=== PATIENT | male | born 1970 | race Caucasian/White ===

== ENCOUNTER → 2019-12-08 | Outpatient (CLI) | payer OTHER ==
[~2019-12-08] MED LIST: AMITRIPTYLINE H10 M1 PO; BENADRYL25 M2 PO; BUSPIRONE; CELEBREX 1100 MG/CAP; CELEBREX 200MG200 MG PO; CEPHALEXIN500 M1 PO; COLACE 100100 MG/CAP PO; DILAUDID 4MG TAB4 MG PO; FLOMAX 0.40.4 MG/CAP PO; LIORESAL 1010 MG/TAB PO; LORTAB 7.5/5001 TAB PO; LYRICA 50MG CAP50 MG PO; MELATONIN5 M1 SL; NUCENTA; NUCYNTA50 MG PO; PERCOCET 325 MG1 TA2 PO; PHENERGAN 25 TA25 MG PO; RAPAFLO4 MG PO; SEPTRA DS 8001 TAB PO; TRAZODONE150 MG PO; XANAX 0.5MG0.5 MG; ZANTAC 150MG T150 MG PO; ZANTAC 300300 MG PO; ZOLOFT50 MG PO
== END ==
LOC: ZCOL.LAB 13:36
DX: T81.31XS Disruption of external operation (surgical) wound, not elsewhere classified, sequela (principal); L03.311 Cellulitis of abdominal wall

== ENCOUNTER 2020-06-26 16:12 | Emergency (ER) | payer OTHER ==
[~2020-06-26] VITALS: Ht 175.3 cm; Wt 131.8 kg
[2020-06-26 16:14] VITALS: BP 122/70; TEMP 97.7
[2020-06-26 17:32] VITALS: PULSE 67
== END 2020-06-26 17:35 | disposition home or self-care (01) ==
LOC: COL.ER 16:12
DX: S16.1XXA Strain of muscle, fascia and tendon at neck level, initial encounter (principal); R51.9 Headache, unspecified; Z91.048 Other nonmedicinal substance allergy status; V89.2XXA Person injured in unspecified motor-vehicle accident, traffic, initial encounter

== ENCOUNTER → 2021-12-02 | Outpatient (CLI) | payer BC | LOC: COL.RAD 12:15 | DX: M47.814 Spondylosis without myelopathy or radiculopathy, thoracic region (principal); M47.816 Spondylosis without myelopathy or radiculopathy, lumbar region ==